=== PATIENT | male | born 1985 | race Hispanic/Latino ===

== ENCOUNTER 2024-11-15 18:57 | Inpatient (IN) | payer OTHER ==
[~2024-11-15] VITALS: Ht 177.8 cm; Wt 85.7 kg
[2024-11-15] VITALS (8 sets, daily range): BP systolic 118–147; BP diastolic 54–73; PULSE 110–119; RESP 19–28; TEMP 97.7; O2SAT 99–100
[2024-11-15] MEDS: SODIUM CHLORIDE 0.9% 1000ML 1,000 ML IV SCH (19:45)
[2024-11-15 19:55] LABS: ABG HCO3 5 mmol/L (22-26); ABG PCO2 15 mmHg (35-45); ABG PH 7.12 (7.35-7.45); ABG PO2 138 mmHg (80-105); ABG TCO2 5
[2024-11-15] MEDS ORDERED: GUAIFENESIN/DEXTROMETHORPHAN LIQD 5 ML UDC PO PRN (20:15)
[2024-11-15] MEDS ORDERED: MELATONIN 3 MG TAB PO PRN (20:15)
[2024-11-15] MEDS ORDERED: HYDRALAZINE HCL 20 MG/ML VIAL IV PRN (20:15)
[2024-11-15] MEDS ORDERED: MAGNESIUM/ALUMINUM/SIMETHICONE 30 ML UDC PO PRN (20:15)
[2024-11-15] MEDS: ONDANSETRON HCL INJ 2MG/ML 2ML 2 MG/ML VIAL IV PRN (20:16)
[2024-11-15] MEDS: DEXTROSE 5%/0.45% SOD CHL 1,000 ML IV SCH (20:17)
[2024-11-15] MEDS: ACETAMINOPHEN 1000 MG/100 ML IV SCH (20:29)
[2024-11-15 20:34] LABS: ANION GAP 27.7 mmol/L (8-16); CALCIUM 9.3 mg/dL (8.4-10.2); CREATININE, SERUM 1.82 mg/dL (0.72-1.25); MAGNESIUM 1.8 MG/DL (1.3-2.1); POTASSIUM 4.7 mmol/L (3.5-5.1)
[2024-11-15] MEDS: ACETAMINOPHEN 1000 MG/100 ML 100 ML IV ONE (20:34)
[2024-11-15] MEDS: INSULIN REGULAR, HUMAN 3ML VL 100 UNIT in SODIUM CHLORIDE 0.9% 100 ML IV SCH (20:34)
[2024-11-15 20:42] LABS: BASOPHILS % 0.2 % (0.0-1.0); EOSINOPHILS # (AUTO) 0.1 (0.0-0.4); EOSINOPHILS % 0.7 % (0.0-6.0); HEMATOCRIT 46.8 % (38.2-49.6); HEMOGLOBIN 14.4 g/dL (14.0-18.0); LYMPHOCYTES # (AUTO) 1.5 (1.0-3.2); LYMPHOCYTES % 12.4 % (18.0-39.1); MEAN CORPUSCULAR HEMOGLOBIN 29.9 pg (28-32); MEAN CORPUSCULAR HGB CONC 30.8 g/dL (31-35); MEAN CORPUSCULAR VOLUME 97.1 fL (81-99); MONOCYTES # (AUTO) 0.8 (0.2-0.8); MONOCYTES % 6.8 % (4.4-11.3); NEUTROPHILS # (AUTO) 9.7 (2.1-6.9); PLATELET COUNT 278 x10e3/uL (140-360); RED BLOOD COUNT 4.82 x10e6/uL (4.3-5.7); RED CELL DISTRIBUTION WIDTH 12.1 % (11.7-14.4)
[2024-11-15] MEDS: MUPIROCIN 2% OINT 22 GM TUBE TOP SCH (20:45)
[2024-11-15 20:53] LABS: CHOL/HDL RATIO 3.7 (3.9-4.7)
[2024-11-16] VITALS (53 sets, daily range): BP systolic 103–157; BP diastolic 61–134; PULSE 80–125; RESP 12–35; TEMP 98.1–98.4; O2SAT 95–100
[2024-11-16 01:05] LABS: HEMATOCRIT 45.6 % (38.2-49.6); HEMOGLOBIN 14.4 g/dL (14.0-18.0)
[2024-11-16 01:27] LABS: ANION GAP 20.1 mmol/L (8-16); CALCIUM 10.2 mg/dL (8.4-10.2); CREATININE, SERUM 1.79 mg/dL (0.72-1.25); MAGNESIUM 1.9 MG/DL (1.3-2.1)
[2024-11-16 01:53] LABS: POTASSIUM 3.1 mmol/L (3.5-5.1)
[2024-11-16] MEDS: POTASSIUM CHLORIDE 20MEQ/100ML 200 ML IV PRN (02:38)
[2024-11-16] MEDS: DEXTROSE 50% SYRINGE 50 ML IV ONE (04:53)
[2024-11-16 07:44] LABS: ANION GAP 14.8 mmol/L (8-16); CALCIUM 9.1 mg/dL (8.4-10.2); CREATININE, SERUM 1.46 mg/dL (0.72-1.25); MAGNESIUM 1.7 MG/DL (1.3-2.1); POTASSIUM 3.8 mmol/L (3.5-5.1)
[2024-11-16 08:19] LABS: BASOPHILS % 0.3 % (0.0-1.0); EOSINOPHILS % 0.1 % (0.0-6.0); HEMATOCRIT 38.1 % (38.2-49.6); HEMOGLOBIN 12.2 g/dL (14.0-18.0); LYMPHOCYTES # (AUTO) 1.1 (1.0-3.2); LYMPHOCYTES % 9.2 % (18.0-39.1); MEAN CORPUSCULAR HEMOGLOBIN 29.5 pg (28-32); MEAN CORPUSCULAR VOLUME 92.3 fL (81-99); MONOCYTES # (AUTO) 1.5 (0.2-0.8); MONOCYTES % 12.9 % (4.4-11.3); NEUTROPHILS # (AUTO) 8.8 (2.1-6.9); NEUTROPHILS % 76.8 % (38.7-80.0); PLATELET COUNT 250 x10e3/uL (140-360); RED BLOOD COUNT 4.13 x10e6/uL (4.3-5.7); RED CELL DISTRIBUTION WIDTH 11.9 % (11.7-14.4); WHITE BLOOD COUNT 11.47 x10e3/uL (4.8-10.8)
[2024-11-16] MEDS: METOCLOPRAMIDE HCL 10 MG/2ML VIAL IV SCH (09:46)
[2024-11-16] MEDS: DEXTROSE 50% SYRINGE 50 ML IV PRN (11:15)
[2024-11-16] MEDS ORDERED: ONDANSETRON HCL INJ 2MG/ML 2ML 2 MG/ML VIAL IV PRN (11:45)
[2024-11-16 14:19] LABS: AMPHETAMINES SCREEN,URINE NEGATIVE (NEGATIVE); BENZODIAZEPINES SCREEN,URINE NEGATIVE (NEGATIVE); CANNABINOIDS SCREEN,URINE NEGATIVE (NEGATIVE); COCAINE SCREEN,URINE NEGATIVE (NEGATIVE); METHADONE SCREEN, URINE NEGATIVE (NEGATIVE); OPIATES SCREEN,URINE NEGATIVE (NEGATIVE); PHENCYCLIDINE SCREEN,URINE NEGATIVE (NEGATIVE)
[2024-11-16 15:15] LABS: ANION GAP 17.5 mmol/L (8-16); CALCIUM 8.8 mg/dL (8.4-10.2); CREATININE, SERUM 1.33 mg/dL (0.72-1.25); MAGNESIUM 1.6 MG/DL (1.3-2.1); POTASSIUM 3.5 mmol/L (3.5-5.1)
[2024-11-16] MEDS: INSULIN REGULAR, HUMAN 3ML VL 100 UNIT in SODIUM CHLORIDE 0.9% 99 ML IV SCH (20:39)
[2024-11-16 20:50] LABS: ANION GAP 16.2 mmol/L (8-16); CALCIUM 8.9 mg/dL (8.4-10.2); CREATININE, SERUM 1.26 mg/dL (0.72-1.25); MAGNESIUM 1.7 MG/DL (1.3-2.1); POTASSIUM 3.2 mmol/L (3.5-5.1)
[2024-11-17] VITALS (26 sets, daily range): BP systolic 99–125; BP diastolic 44–79; PULSE 71–109; RESP 11–26; TEMP 97.6–98.2; O2SAT 94–100
[2024-11-17 05:44] LABS: ABG HCO3 5 mmol/L (22-26); ABG PCO2 15 mmHg (35-45); ABG PH 7.12 (7.35-7.45); ABG PO2 138 mmHg (80-105); ABG TCO2 5
[2024-11-17 07:42] LABS: BASOPHILS % 0.4 % (0.0-1.0); EOSINOPHILS % 0.5 % (0.0-6.0); HEMATOCRIT 34.4 % (38.2-49.6); HEMOGLOBIN 11.3 g/dL (14.0-18.0); LYMPHOCYTES # (AUTO) 1.2 (1.0-3.2); LYMPHOCYTES % 20.7 % (18.0-39.1); MEAN CORPUSCULAR HEMOGLOBIN 29.6 pg (28-32); MEAN CORPUSCULAR HGB CONC 32.8 g/dL (31-35); MEAN CORPUSCULAR VOLUME 90.1 fL (81-99); MONOCYTES # (AUTO) 0.4 (0.2-0.8); NEUTROPHILS # (AUTO) 4.1 (2.1-6.9); PLATELET COUNT 206 x10e3/uL (140-360); RED BLOOD COUNT 3.82 x10e6/uL (4.3-5.7)
[2024-11-17 08:01] LABS: ANION GAP 10.8 mmol/L (8-16); CALCIUM 8.8 mg/dL (8.4-10.2)
[2024-11-17 08:06] LABS: POTASSIUM 2.8 mmol/L (3.5-5.1)
[2024-11-17 08:14] LABS: MAGNESIUM 1.6 MG/DL (1.3-2.1); PHOSPHORUS 1.5 MG/DL (2.3-4.7)
[2024-11-17] MEDS: POTASSIUM CHLORIDE 20 MEQ TAB CR PO ONE (08:56)
[2024-11-17] MEDS: ACETAMINOPHEN 325 MG TAB PO PRN (10:53)
[2024-11-17] MEDS: HYDROCODONE/APAP 7.5MG-325MG 1 EA TAB PO PRN (12:52)
[2024-11-17] MEDS: MAGNESIUM SULF 1GRAM/DEXTROSE 100 ML IV PRN (14:47)
[2024-11-18] VITALS (24 sets, daily range): BP systolic 105–143; BP diastolic 58–87; PULSE 65–99; RESP 10–25; TEMP 98–98.6; O2SAT 97–100
[2024-11-18 07:52] LABS: BASOPHILS % 0.6 % (0.0-1.0); EOSINOPHILS # (AUTO) 0.1 (0.0-0.4); EOSINOPHILS % 1.4 % (0.0-6.0); HEMATOCRIT 35.5 % (38.2-49.6); HEMOGLOBIN 11.6 g/dL (14.0-18.0); LYMPHOCYTES # (AUTO) 1.9 (1.0-3.2); MEAN CORPUSCULAR HEMOGLOBIN 29.4 pg (28-32); MEAN CORPUSCULAR HGB CONC 32.7 g/dL (31-35); MEAN CORPUSCULAR VOLUME 89.9 fL (81-99); MONOCYTES # (AUTO) 0.5 (0.2-0.8); MONOCYTES % 9.2 % (4.4-11.3); NEUTROPHILS # (AUTO) 2.4 (2.1-6.9); NEUTROPHILS % 49.6 % (38.7-80.0); PLATELET COUNT 202 x10e3/uL (140-360); RED BLOOD COUNT 3.95 x10e6/uL (4.3-5.7); RED CELL DISTRIBUTION WIDTH 12.1 % (11.7-14.4)
[2024-11-18 08:21] LABS: ANION GAP 11.1 mmol/L (8-16); BLOOD UREA NITROGEN < 5 mg/dL (7-26); CALCIUM 8.4 mg/dL (8.4-10.2); CARBON DIOXIDE 19 mmol/L (22-29); CHLORIDE 112 mmol/L (98-107); CREATININE, SERUM 0.76 mg/dL (0.72-1.25); EST GLOMERULAR FILTRATION RATE 116 ML/MIN (>=60); GLUCOSE 122 mg/dL (74-118); SODIUM 139 mmol/L (136-145)
[2024-11-18 08:23] LABS: BUN/CREATININE RATIO 7 (6-25); POTASSIUM 3.1 mmol/L (3.5-5.1)
[2024-11-18] MEDS: POTASSIUM CHLORIDE 20 MEQ TAB CR PO ONE (15:37)
[2024-11-18] MEDS: INSULIN LISPRO 100 UNIT/1 ML 3ML VIAL SQ ONE (16:44)
[2024-11-18] MEDS: INSULIN LISPRO 100 UNIT/1 ML 3ML VIAL SQ SCH (16:52)
[2024-11-18] MEDS: INSULIN GLARGINE 100 UNITS/ML VIAL SQ SCH (20:11)
[2024-11-19] VITALS (9 sets, daily range): BP systolic 109–130; BP diastolic 64–81; PULSE 60–70; RESP 15–20; TEMP 97.8–98.4; O2SAT 96–100
[2024-11-19 06:24] LABS: BASOPHILS % 0.5 % (0.0-1.0); EOSINOPHILS # (AUTO) 0.1 (0.0-0.4); EOSINOPHILS % 2.7 % (0.0-6.0); HEMATOCRIT 32.9 % (38.2-49.6); HEMOGLOBIN 11.3 g/dL (14.0-18.0); LYMPHOCYTES # (AUTO) 2.3 (1.0-3.2); LYMPHOCYTES % 51.6 % (18.0-39.1); MEAN CORPUSCULAR HEMOGLOBIN 29.6 pg (28-32); MEAN CORPUSCULAR HGB CONC 34.3 g/dL (31-35); MEAN CORPUSCULAR VOLUME 86.1 fL (81-99); MONOCYTES # (AUTO) 0.4 (0.2-0.8); MONOCYTES % 8.2 % (4.4-11.3); NEUTROPHILS # (AUTO) 1.6 (2.1-6.9); NEUTROPHILS % 36.8 % (38.7-80.0); PLATELET COUNT 199 x10e3/uL (140-360); RED BLOOD COUNT 3.82 x10e6/uL (4.3-5.7); RED CELL DISTRIBUTION WIDTH 12.4 % (11.7-14.4)
[2024-11-19 07:01] LABS: ALANINE AMINOTRANSFERASE 11 IU/L (0-55); ALBUMIN/GLOBULIN RATIO 1.3 (0.8-2.0); ALKALINE PHOSPHATASE 62 IU/L (40-150); ANION GAP 10.8 mmol/L (8-16); BILIRUBIN,TOTAL 0.4 mg/dL (0.2-1.2); BLOOD UREA NITROGEN < 5 mg/dL (7-26); BUN/CREATININE RATIO 7 (6-25); CALCIUM 8.5 mg/dL (8.4-10.2); CARBON DIOXIDE 20 mmol/L (22-29); CHLORIDE 111 mmol/L (98-107); CREATININE, SERUM 0.68 mg/dL (0.72-1.25); EST GLOMERULAR FILTRATION RATE 120 ML/MIN (>=60); GLUCOSE 170 mg/dL (74-118); POTASSIUM 3.8 mmol/L (3.5-5.1); SODIUM 138 mmol/L (136-145); TOTAL PROTEIN 5.4 g/dL (6.5-8.1)
[2024-11-19] MEDS: INSULIN LISPRO 100 UNIT/1 ML 3ML VIAL SQ SCH (08:47)
== END 2024-11-19 09:15 | disposition home or self-care (01) | DRG 637 ==
LOC: ICU 18:57
PROVIDERS: ADMIT Internal Medicine; ATTEND Internal Medicine
PROC: 4A133R1 Monitoring of Arterial Saturation, Peripheral, Percutaneous Approach (ICD-10-PCS; principal; 2024-11-15)
DX: E11.10 Type 2 diabetes mellitus with ketoacidosis without coma (principal); K29.71 Gastritis, unspecified, with bleeding; N17.9 Acute kidney failure, unspecified; E86.0 Dehydration; R53.81 Other malaise; E78.5 Hyperlipidemia, unspecified; I10 Essential (primary) hypertension; Z79.4 Long term (current) use of insulin
CPT/HCPCS: 36415; 36600; 80048; 80053; 80061; 80307; 82805; 82948; 83036; 83735; 84100; 84443; 85014; 85018; 85025; 99252; J1815; J2405; J2470; J2543; J2765; J3475; J3480; J7050; J7799